=== PATIENT | male | born 1990 | race Caucasian/White ===

== ENCOUNTER 2020-03-31 22:17 | Observation (INO) | payer MEDICAID, SELFPAY ==
[2020-03-31 22:18] VITALS: BP 143/97; PULSE 104; RESP 16; TEMP 37.2; O2SAT 97; BMI 23.9
--- NOTE | 2020-03-31 22:30 | ED.VIS.GEN ---
History of Present Illness Chief Complaint: Substance Abuse Informant: Patient Onset: Days Context: Gradual Onset Timing: Intermittent Current Severity: Moderate Maximum Severity: Moderate Narrative: The patient is a 29-year-old male with medical history significant for opiate abuse and dependence that presents to the emergency department requesting detox. Patient states he is been doing outpatient Suboxone therapy, but is still continued to use. He states that he last used heroin about 3 days ago. He snorts, and denies any recent IV injection. He states he used to inject, but for the time being has just been abusing it intranasally. He states that he failed his last 2 drug tests for his Suboxone therapy. He states that he is interested in going through detox program because he is having a difficult time staying clean. He denies fevers or chills. He denies any other systemic symptoms. Prior similar symptoms: Yes Recent Illness/Hospitalization: No Past Medical History - Allergies and Home Meds Allergies/Adverse Reactions: Allergies bee venom protein (honey bee) Allergy (Verified 03/31/20 22:23) Swelling Primary Care Physician: Care Physician,No Primary [NON-STAFF] - Prior records reviewed: Yes Past Medical History: - - Anxiety, depression Surgical History: noncontributory Smoking Status: Current every day smoker Drugs: Heroin Review of Systems General: Denies: Chills, Fever, Sweats Eyes: Denies: Visual changes - bilaterally, Diplopia ENT: Denies: Rhinorrhea, Sore throat Cardiovascular: Denies: Chest pain, Palpitations Respiratory: Denies: Dyspnea, Cough, Dyspnea on exertion Gastrointestinal: Denies: Abdominal pain, Nausea, Vomiting, Diarrhea, Melena, Hematochezia Genitourinary: Denies: Dysuria, Hematuria, Frequency Musculoskeletal: Denies: Back pain, Extremity Pain Skin: Denies: Rash, Wounds Neurological: Denies: Headache, Weakness, Numbness Physical Exam Vital Signs/Narrative: Vital Signs Temp Pulse Resp BP Pulse Ox 03/31/20 22:18 99 F 104 H 16 143/97 H 97 Inital Vital Signs reviewed: Yes General: Well nourished, Well developed, No Acute Distress Head: Normocephalic, Atraumatic Eyes: Perrl, EOMI ENT: Moist mucous membranes, No rhinorrhea Neck: Supple, Nontender Cardiovascular: Regular rate, Regular rhythm, No murmurs Respiratory: No distress, CTA bilaterally, Chest nontender Abdomen: Soft, Nontender, Nondistended, Normal bowel sounds Back: Nontender, Normal Inspection Extremities: Nontender, No edema Skin: Normal color, No rash Neurological: Alert, Oriented x3, Cranial nerves II-XII grossly intact, Normal Strength, Normal Sensation Psychological: Normal affect, Normal Mood Diagnostic/Tx/Re-eval - Medical Decision Making The patient presents requesting detox from opiates. He states he is been doing a good job of being clean until the past month. He started using again. He is mildly hypertensive and tachycardic. Screening labs are obtained. The patient was discussed with the hospitalist for admission to inpatient detox. Impression 1. Opiate abuse and dependence ED Disposition - Plan for ED Patient: Referrals: Care Physician,No Primary [NON-STAFF] -
[2020-03-31 22:58] LABS: Absolute Lymphocyte Count 1.04 X10^3/uL (0.83-4.51); Absolute Neutrophil Count 5.4 X10^3/uL (2.0-7.7); Basophil# 0.02 X10^3/uL; Basophil% 0.3 % (0-1); Eosinophil# 0.03 X10^3/uL; Eosinophils% 0.4 % (0-5); Hematocrit 45.7 % (40-54); Hemoglobin 15.3 g/dL (13.0-16.5); Lymphocyte # 1.04 X10^3/ul (4.0); Mean Corp Hgb Conc 33.5 g/dL (32-36); Mean Corpuscular Hgb 29.4 pg (27.0-32.0); Mean Corpuscular Volume 87.9 fL (80-94); Mean Platelet Vol. 9.4 fl (6.2-12.0); Monocyte# 0.45 X10^3/uL; Monocyte% 6.5 % (0-10); NRBC Flagged by Analyzer 0 % (0-5); Neutrophil # 5.38 X10^3/uL (2.7-7.7); Neutrophil % 77.7 % (47-70); Platelet Count 408 K/mm3 (150-450); RBC Distribution Width CV 11.6 % (11.6-14.6); RBC Distribution Width SD 37.4 fl (35.1-43.9); White Blood Count 6.9 K/mm3 (4.4-11.0)
--- NOTE | 2020-03-31 23:10 | HP.PCM_ITS ---
Problem List (1) Opiate addiction Status: Acute (2) Methamphetamine addiction Status: Acute History of Present Illness Date of Admission: 03/31/20 Chief Complaint: requesting opiate detoxification The patient is a 29 year old male patient with a significant past medical history of opiate addiction who is been taking Suboxone for quite some time presents to the emergency room for opiate withdrawal. Patient has continued to use heroin and amphetamine on top of his Suboxone program. He has been threatened to be discharged from his IOP program and is requesting inpatient detoxification so that he may remain in the program. Denies chest pain or shortness of breath but does feel fidgety and agitated at present time. Patient is currently in 1 pack/day smoker. He denies any chest pain shortness of breath fevers or chills no nausea vomiting or diarrhea at the present time. He will be admitted to medical surgical floor and case management consulted to assist with his ongoing program for addiction management Past Medical History Allergies bee venom protein (honey bee) Allergy (Verified 03/31/20 22:23) Swelling Home Medications: Ambulatory Orders Medication Instructions Recorded Buprenorphine HCl/Naloxone HCl 1 ea BC BID 03/31/20 [Bunavail 2.1-0.3 mg Film] Hydroxyzine HCl 25 mg PO BID 03/31/20 Mirtazapine [Remeron] 15 mg PO QHS 03/31/20 Surgical History: noncontributory Smoking Status: Current every day smoker Drugs: Heroin, - - amphetamine - *Family History Maternal History Items: No pertinent history Review of Systems Constitutional: Denies: Chills, Fever, Weight Change HEENT: Denies: Head Aches, Sinus Congestion, Sinus Drainage Cardiovascular: Denies: Chest Pain, Palpitations Respiratory: Denies: Cough, Shortness of breath at rest, Sputum production Gastrointestinal: Denies: Abdominal Pain, Nausea, Vomiting Genitourinary: Denies: Dysuria Musculoskeletal: Denies: Joint Pain, Joint Tenderness Skin: Denies: Rash, Wounds Neurological: Denies: Numbness, Tingling, Focal weakness Psychiatric: Reports: Anxiety. Denies: Depression, Homicidal Ideations, Suicidal Ideations Hematologic/ Lymphatic: Denies: Easy Bruising, Easy Bleeding VTE Information - Inpt Only VTE Present on Admission: No VTE Mechan Device Prophylaxis: None VTE Pharm Prophylaxis ordered?: No Patient Problems: Active and Suspected Problems Opiate addiction (Acute) Methamphetamine addiction (Acute) - Physical Exam Vitals/I&O's: Vital Signs Temp Pulse Resp BP Pulse Ox 99 F 104 H 16 143/97 H 97 03/31/20 22:18 03/31/20 22:18 03/31/20 22:18 03/31/20 22:18 03/31/20 22:18 Weight: 176 lb 5.917 oz Body Mass Index (BMI) 23.9 General: Alert, Oriented x3, Cooperative HEENT: Atraumatic, PERRLA, EOMI, Normocephalic Neck: Supple Lungs: Clear to auscultation, Normal air movement Cardiovascular: Regular rate, Normal S1, Normal S2, No murmurs Abdomen: Bowel Sounds Present, Soft, Non Tender Extremities: No edema Skin: No rashes Musculoskeletal: No Tenderness to Palpation of Joints or Extremities Neurological: Neuro grossly intact Psych/Mental Status: Normal Affect, Appropriate Laboratory Results 03/31/20 22:50: WBC 6.9, RBC 5.20, Hgb 15.3, Hct 45.7, MCV 87.9, MCH 29.4, MCHC 33.5, RDW Std Deviation 37.4, RDW Coeff of Melody 11.6, Plt Count 408, MPV 9.4, Immature Gran % (Auto) 0.100, Neut % (Auto) 77.7 H, Lymph % (Auto) 15.0 L, [place] % (Auto) 6.5, Eos % (Auto) 0.4, Baso % (Auto) 0.3, Absolute Neuts (auto) 5.4, Absolute Lymphs (auto) 1.04, Nucleated RBC % 0 03/31/20 22:50: Sodium Pending, Potassium Pending, Chloride Pending, Carbon Dioxide Pending, Anion Gap Pending, BUN Pending, Creatinine Pending, Est GFR (MDRD) Af Amer Pending, Est GFR (MDRD) Non-Af Pending, BUN/Creatinine Ratio Pending, Glucose Pending, Calcium Pending, Total Bilirubin Pending, AST Pending, ALT Pending, Alkaline Phosphatase Pending, Total Protein Pending, Albumin Pending 03/31/20 22:50: Ethyl Alcohol Pending Assessment/Plan All Active Problems Opiate addiction (Acute) Methamphetamine addiction (Acute) Plan 1 opiate/amphetamine addiction?admit to medical surgical floor, consult case management and 180 in the morning, place patient on opiate withdrawal protocol 2. Tobacco abuse disorder?nicotine patch will be given 3. DVT prophylaxis?patient is ambulatory and will not need treatment at this time Inpatient E&M: 75093 Init Hosp L3
[2020-03-31 23:14] VITALS: BP 143/97; PULSE 104; RESP 17; TEMP 37.2; O2SAT 99
[2020-03-31 23:17] LABS: Alcohol, Blood (Medical)-Serum < 3.0 mg/dL
[2020-03-31 23:21] LABS: AST(SGOT) 32 U/L (15-37); Alanine Aminotransfer ALT/SGPT 38 U/L (16-61); Albumin, Serum 4.4 g/dL (3.2-5.0); Alkaline Phosphatase 57 U/L (45-117); Anion Gap 7 (5-15); BUN 19 mg/dL (7-18); BUN/Creat Ratio 16.2 RATIO (10-20); Calcium,Total 9.3 mg/dL (8.5-10.1); Chloride 96 mmol/L (98-107); Creatinine, Serum 1.17 mg/dL (0.70-1.30); EST Glomerular Filtration Rate 77 mL/min (>60); Est Glom Filt Rate - Afr Amer 93 mL/min (>60); Estimated Creatinine Clearance 100.41 ml/min; Globulin 4.5 g/dL (2.2-4.2); Glucose 116 mg/dL (74-106); Potassium 4.3 mmol/L (3.5-5.1); Protein, Total 8.9 g/dL (6.4-8.2); Sodium Level 136 mmol/L (136-145)
[2020-03-31 23:26] VITALS: BMI 23.8
[2020-03-31 23:48] VITALS: BP 135/94; PULSE 106; RESP 16; TEMP 36.9; O2SAT 96
[2020-03-31 23:49] VITALS: BMI 23.8
[2020-04-01] VITALS (9 sets, daily range): BP systolic 117–131; BP diastolic 67–81; PULSE 64–88; RESP 16–18; TEMP 36.6–36.8; O2SAT 93–100
[2020-04-01] MEDS: Methocarbamol 750 MG Tablet 1500 MG PO ×3 (00:07→16:49)
[2020-04-01] MEDS: Mirtazapine 15 MG Tablet PO ×2 (00:08→22:39)
[2020-04-01] MEDS: hydrOXYzine PAM 25 MG Capsule 50 MG PO ×2 (00:08→22:39)
[2020-04-01 01:21] LABS: Amphetamine Urine VISTA POSITIVE (<1000 ng/mL); Barbiturate Urine VISTA NEGATIVE (< 200 ng/mL); Benzodiazepine Urine VISTA NEGATIVE (< 200 ng/mL); Cocaine Urine VISTA NEGATIVE (< 300 ng/mL); Ecstacy Urine VISTA POSITIVE (< 500 ng/mL); Methadone Urine VISTA NEGATIVE (< 300 ng/mL); PCP Urine VISTA NEGATIVE (< 25 ng/mL); THC Urine VISTA NEGATIVE (< 50 ng/mL); Vista UDS pH Range 7
--- NOTE | 2020-04-01 08:49 | CASEMGMT ---
Addendum entered by Inge Swain 04/01/20 11:58: SW received message from Anju at [facility] asking if SW can have pt sign YOANDY for [facility] and [facility]. SW in to speak with pt. SW introduced self and role at [facility]. Pt signed YOANDY for [facility] and [facility]. PAU faxed YOANDY to Anju at [facility] and placed originals on pt's chart. Original Note: Social Work Note Pt is RAMP pt. PAU placed a call to Anju at [facility] and updated her that pt will need to be seen. Inge Swain PHOTOGRAPHIC LABORATORY TECHNICIAN, WIRELESS ENGINEER
[2020-04-01] MEDS: cloNIDine HCl 0.1 MG Tablet PO ×2 (08:59→16:49)
[2020-04-01] MEDS: Buprenorphine HCl 2 MG TAB.SUBL SL ×2 (09:46→16:49)
--- NOTE | 2020-04-01 14:29 | PCM.PN.HOSP ---
Patient Problems: Active and Suspected Problems Opiate addiction (Acute) Methamphetamine addiction (Acute) Reason for Visit: Patient admitted for opioid withdrawal syndrome Objective: Patient has anxiety, restlessness, nausea and abdominal cramps. No diarrhea yet. Denies hallucination, delusion or delusion. Feeling generalized aches and pain, hot and cold sensation. Physical exam General: Alert, Oriented x3, Cooperative HEENT: Atraumatic, PERRLA, EOMI, Normocephalic Oral: No Gingival or Mucosal Lesions/ Ulcerations Neck: Supple, No JVD, Negative Carotid Bruits Lungs: Air entry equal in bilateral lungs. No crepitation/rhonchi Cardiovascular: Regular rate, Regular Rhythm, Normal S1, Normal S2, No murmurs Abdomen: Bowel Sounds Present, Soft, Non Tender, Non-Distended : No renal angle tenderness. No suprapubic tenderness. Extremities: No edema, Capillary Refill Less than 3 Seconds Skin: No rashes, No breakdown. Needle track white on bilateral antecubital regions. Chronic thrombophlebitis. Musculoskeletal: No Tenderness to Palpation of Joints or Extremities Neurological: Cranial nerves II-XII grossly intact, Deep Tendon Reflexes 2+/4 and Symmetrical, Neuro grossly intact Psych/Mental Status: Normal Affect, Appropriate Vitals/I&O's: Vital Signs Temp Pulse Resp BP Pulse Ox 98.1 F 77 16 125/81 H 99 04/01/20 12:32 04/01/20 12:32 04/01/20 12:32 04/01/20 12:32 04/01/20 12:32 Oxygen Delivery Method Room Air Weight: 175 lb 7.807 oz Body Mass Index (BMI) 23.8 Intake and Output for Last 24 Hours 03/30/20 03/31/20 04/01/20 23:59 23:59 23:59 Intake Total 640 / 640 Balance 640 / 640 Laboratory Results 03/31/20 22:50: WBC 6.9, RBC 5.20, Hgb 15.3, Hct 45.7, MCV 87.9, MCH 29.4, MCHC 33.5, RDW Std Deviation 37.4, RDW Coeff of Melody 11.6, Plt Count 408, MPV 9.4, Immature Gran % (Auto) 0.100, Neut % (Auto) 77.7 H, Lymph % (Auto) 15.0 L, [place] % (Auto) 6.5, Eos % (Auto) 0.4, Baso % (Auto) 0.3, Absolute Neuts (auto) 5.4, Absolute Lymphs (auto) 1.04, Nucleated RBC % 0 03/31/20 22:50: Sodium 136, Potassium 4.3, Chloride 96 L, Carbon Dioxide 33.0 H, Anion Gap 7, BUN 19 H, Creatinine 1.17, Estim Creat Clear Calc 100.41, Est GFR (MDRD) Af Amer 93, Est GFR (MDRD) Non-Af 77, BUN/Creatinine Ratio 16.2, Glucose 116 H, Calcium 9.3, Total Bilirubin 0.20, AST 32, ALT 38, Alkaline Phosphatase 57, Total Protein 8.9 H, Albumin 4.4, Globulin 4.5 H, Albumin/Globulin Ratio 1.0 03/31/20 22:50: Ethyl Alcohol < 3.0 04/01/20 00:37: Urine Opiates Screen NEGATIVE, Urine Methadone Screen NEGATIVE, Ur Barbiturates Screen NEGATIVE, Ur Phencyclidine Scrn NEGATIVE, Ur Amphetamines Screen POSITIVE H, U Methamphetamin-MDMA POSITIVE H, U Benzodiazepines Scrn NEGATIVE, Urine Cocaine Screen NEGATIVE, U Cannabinoids Screen NEGATIVE, Ur Drug Screen Comment Current Medications Buprenorphine HCl (Buprenorphine Hcl) 4 mg SL Q8H NAIMA; Taper Stop: 04/04/20 09:14 Last Admin: 04/01/20 09:46 Dose: 4 mg Documented by: Clonidine (Catapres) 0.1 mg PO Q8H PRN PRN PRN Reason: RESTLESSNESS Last Admin: 04/01/20 08:59 Dose: 0.1 mg Documented by: Dicyclomine HCl (Bentyl) 20 mg PO Q6H PRN PRN PRN Reason: Abdominal Discomfort Gabapentin (Neurontin) 300 mg PO Q8H PRN PRN PRN Reason: moderate to severe anxiety Hydroxyzine Pamoate (Vistaril Pamoate Capsule) 50 mg PO Q6H PRN PRN PRN Reason: mild anxiety Last Admin: 04/01/20 00:08 Dose: 50 mg Documented by: Loperamide HCl (Imodium) 2 mg PO Q4H PRN PRN PRN Reason: LOOSE STOOLS Methocarbamol (Methocarbamol) 1,500 mg PO Q6H PRN PRN PRN Reason: MUSCLE SPASM Last Admin: 04/01/20 08:59 Dose: 1,500 mg Documented by: Mirtazapine (Remeron) 15 mg PO QHS NAIMA Last Admin: 04/01/20 00:08 Dose: 15 mg Documented by: Ondansetron HCl (Zofran) 8 mg PO Q8H PRN PRN PRN Reason: NAUSEA Trazodone HCl (Desyrel) 100 mg PO QHS PRN PRN PRN Reason: INSOMNIA STROKE Vital Signs/Narrative: Vital Signs Temp Pulse Resp BP Pulse Ox 04/01/20 12:32 98.1 F 77 16 125/81 H 99 Medical Necessity - Tobacco Use Smoking Status: Current every day smoker Tobacco Use: Cigarettes Assessment/Plan All Active Problems Opiate addiction (Acute) Methamphetamine addiction (Acute) This 29-year-old patient gentleman admitted with with opioid withdrawal symptoms. 1. Acute opioid withdrawal syndrome with chronic opioid use disorder: Patient has been taking Suboxone for quite some time. Uses IV heroin and snorts Suboxone. On buprenorphine schedule and taper along with other supportive medications including hydroxyzine, gabapentin, methocarbamol, Remeron, Imodium and ibuprofen. 2. Chronic methamphetamine dependence: 3. Chronic tobacco use, smoking cigarettes: On nicotine patch. 4. DVT prophylaxis, low risk. Patient is ambulatory. Inpatient E&M: 42195 Subs Hosp L2
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
[2020-04-01] MEDS: Ibuprofen 600 MG Tablet PO (16:49)
[2020-04-02 02:00] VITALS: BP 116/75; PULSE 81; RESP 16; TEMP 36.4; O2SAT 97
[2020-04-02] MEDS: Buprenorphine HCl 2 MG TAB.SUBL SL ×3 (02:03→16:49)
[2020-04-02 09:00] VITALS: BP 108/70; PULSE 56; RESP 18; TEMP 36.4; O2SAT 93
[2020-04-02] MEDS: hydrOXYzine PAM 25 MG Capsule 50 MG PO ×2 (09:02→22:12)
[2020-04-02] MEDS: Methocarbamol 750 MG Tablet 1500 MG PO (09:02)
[2020-04-02] MEDS: Ibuprofen 600 MG Tablet PO (09:02)
--- NOTE | 2020-04-02 12:28 | PN_ITS ---
Patient Problems: Active and Suspected Problems Opiate addiction (Acute) Methamphetamine addiction (Acute) Reason for Visit: Opioid withdrawal symptoms Objective: Patient withdrawal symptoms are controlled. Patient has mild anxiety otherwise no tremors. Physical exam General: Alert, Oriented x3, Cooperative HEENT: Atraumatic, PERRLA, EOMI, Normocephalic Oral: No Gingival or Mucosal Lesions/ Ulcerations Neck: Supple, No JVD, Negative Carotid Bruits Lungs: Air entry equal in bilateral lung bases. No crepitation/rhonchi Cardiovascular: Regular rate, Regular Rhythm, Normal S1, Normal S2, No murmurs Abdomen: Bowel Sounds Present, Soft, Non Tender, Non-Distended : No renal angle tenderness. No suprapubic tenderness. Extremities: No edema, Capillary Refill Less than 3 Seconds. Needle rica over bilateral antecubital region Skin: No rashes, No breakdown Musculoskeletal: No Tenderness to Palpation of Joints or Extremities Neurological: Cranial nerves II-XII grossly intact, Deep Tendon Reflexes 2+/4 and Symmetrical, Neuro grossly intact Psych/Mental Status: Normal Affect, Appropriate Vitals/I&O's: Vital Signs Temp Pulse Resp BP Pulse Ox 97.5 F L 56 L 18 108/70 93 04/02/20 09:00 04/02/20 09:00 04/02/20 09:00 04/02/20 09:00 04/02/20 09:00 Oxygen Delivery Method Room Air Weight: 175 lb 7.807 oz Body Mass Index (BMI) 23.8 Intake and Output for Last 24 Hours 03/31/20 04/01/20 04/02/20 23:59 23:59 23:59 Intake Total 1040 / 1640 1000 / 1000 Balance 1040 / 1640 1000 / 1000 Current Medications Acetaminophen (Tylenol) 500 mg PO Q4H PRN PRN PRN Reason: Temp > 100.4 F Al Hydroxide/Mg Hydroxide (Mylanta Ii) 30 ml PO Q6H PRN PRN PRN Reason: dyspesia Bisacodyl (Dulcolax) 10 mg RECTAL DAILY PRN PRN Reason: Constipation Buprenorphine HCl (Buprenorphine Hcl) 2 mg SL Q8H REPLACED BY [facility]; Taper Stop: 04/04/20 09:14 Last Admin: 04/02/20 08:58 Dose: 2 mg Documented by: Clonidine (Catapres) 0.1 mg PO Q8H PRN PRN PRN Reason: RESTLESSNESS Last Admin: 04/01/20 16:49 Dose: 0.1 mg Documented by: Dicyclomine HCl (Bentyl) 20 mg PO Q6H PRN PRN PRN Reason: Abdominal Discomfort Gabapentin (Neurontin) 300 mg PO Q8H PRN PRN PRN Reason: moderate to severe anxiety Hydroxyzine Pamoate (Vistaril Pamoate Capsule) 50 mg PO Q6H PRN PRN PRN Reason: mild anxiety Last Admin: 04/02/20 09:02 Dose: 50 mg Documented by: Ibuprofen (Motrin) 600 mg PO Q8H PRN PRN PRN Reason: Pain Score 1-10/10 Last Admin: 04/02/20 09:02 Dose: 600 mg Documented by: Loperamide HCl (Imodium) 2 mg PO Q4H PRN PRN PRN Reason: LOOSE STOOLS Methocarbamol (Methocarbamol) 1,500 mg PO Q6H PRN PRN PRN Reason: MUSCLE SPASM Last Admin: 04/02/20 09:02 Dose: 1,500 mg Documented by: Mirtazapine (Remeron) 15 mg PO QHS NAIMA Last Admin: 04/01/20 22:39 Dose: 15 mg Documented by: Ondansetron HCl (Zofran) 8 mg PO Q8H PRN PRN PRN Reason: NAUSEA Senna (Senokot) 2 tablet PO QHS PRN PRN Reason: Constipation STROKE Vital Signs/Narrative: Vital Signs Temp Pulse Resp BP Pulse Ox 04/02/20 09:00 97.5 F L 56 L 18 108/70 93 Medical Necessity - Tobacco Use Smoking Status: Current every day smoker Tobacco Use: Cigarettes Assessment/Plan All Active Problems Opiate addiction (Acute) Methamphetamine addiction (Acute) This 29-year-old patient gentleman admitted with with opioid withdrawal symptoms. 1. Acute opioid withdrawal syndrome with chronic opioid use disorder: Patient has been taking Suboxone for quite some time. Uses IV heroin and snorts Suboxone. On buprenorphine schedule and taper along with other supportive medications including hydroxyzine, gabapentin, methocarbamol, Remeron, Imodium and ibuprofen. 04/02: Withdrawal symptoms are well controlled. Anticipate discharge tomorrow. 2. Chronic methamphetamine dependence: 3. Chronic tobacco use, smoking cigarettes: On nicotine patch. 4. DVT prophylaxis, low risk. Patient is ambulatory. Inpatient E&M: 78264 Subs Hosp L2
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
[2020-04-02 16:55] VITALS: BP 106/74; PULSE 98; RESP 18; TEMP 36.4; O2SAT 97
[2020-04-02 22:03] VITALS: BP 129/63; PULSE 88; RESP 16; TEMP 36.6; O2SAT 95
[2020-04-02] MEDS: Mirtazapine 15 MG Tablet PO (22:08)
[2020-04-02 22:18] VITALS: PULSE 88
[2020-04-03 00:57] VITALS: BP 149/77; PULSE 76; RESP 16; TEMP 36.8; O2SAT 96
[2020-04-03] MEDS: Buprenorphine HCl 2 MG TAB.SUBL SL ×2 (01:00→10:13)
--- NOTE | 2020-04-03 10:08 | DCINST_ITS ---
- Discharge Diagnoses Current Active Problems: Current Active and Chronic Problems Opiate addiction (Acute) Methamphetamine addiction (Acute) You will use the following diet at home:: Regular Your food should be the consistency of: Regular Discharge Activity: May Not Drive Weight Bearing Status: Weight bearing as tolerated Call your doctor if you observe: Fever of 101 or Higher, Coldness, Increased Pain, Numbness or Tingling, Change in Color, Inability to urinate, Inability to have a bowel movement, Shortness of breath, Dizziness, Fainting spells, Swelling in the ankles, Chest pain, Prolonged hiccoughing, Increased palpitations (irregular heartbeat), Calf discomfort, Uncontrolled pain Allergies/Adverse Reactions: Allergies bee venom protein (honey bee) Allergy (Verified 03/31/20 22:23) Swelling Medications to take at Discharge Buprenorphine HCl/Naloxone HCl [Bunavail 2.1-0.3 mg Film] 8 mg SL BID 03/31/20 Hydroxyzine HCl 50 mg PO BID 03/31/20 Mirtazapine [Remeron] 15 mg PO QHS 03/31/20 Primary Care Physician: Care Physician,No Primary [NON-STAFF] - Please follow up with your Primary Care Physician in: in 2 week Test Results: Test results from this visit will be discussed in further detail at your follow- up appointment, if applicable. Please Follow Up With: Madeleine Benitez DO When: in 2-3 weeks for substance/opiate use disorder
--- NOTE | 2020-04-03 10:09 | PCM.DC.SUM ---
Discharge Date and Diagnosis Date of Admission: 03/31/20 Date of Discharge: 04/03/20 - Primary Discharge Diagnosis Acute Problems: Active Problems Opiate addiction (Acute) Methamphetamine addiction (Acute) Hospital Course and Treatment Summary of Care Provided: This 29-year-old patient gentleman admitted with with opioid withdrawal symptoms. 1. Acute opioid withdrawal syndrome with chronic opioid use disorder: Patient has been taking Suboxone for quite some time. Uses IV heroin and snorts Suboxone. On buprenorphine schedule and taper along with other supportive medications including hydroxyzine, gabapentin, methocarbamol, Remeron, Imodium and ibuprofen. Patient symptoms of opioid withdrawals were controlled. Follow-up with the Deaddiction specialist, Dr. Benitez. She has follow-up with outpatient substance use rehab. 2. Chronic methamphetamine dependence: 3. Chronic tobacco use, smoking cigarettes: On nicotine patch. 4. DVT prophylaxis, low risk. Patient is ambulatory. [] Discharge medication reconciliation done. Discharge follow-up instructions completed. Discharge process discussed with the patient and all questions were answered to patient's satisfaction. Total time spent, exact 35 minutes on discharge meds reconciliation, examination, coordination of care with nurses and ancillary staff, review of imaging and blood test and discussion with the patient on follow-up instructions Subjective: Patient symptoms of opioid withdrawal is controlled. Denies anxiety, restlessness or tremors. Physical exam: General: Alert, Oriented x3, Cooperative HEENT: Atraumatic, PERRLA, EOMI, Normocephalic Oral: No Gingival or Mucosal Lesions/ Ulcerations Neck: Supple, No JVD, Negative Carotid Bruits Lungs: Air entry equal in bilateral lung bases. No crepitation/rhonchi Cardiovascular: Regular rate, Regular Rhythm, Normal S1, Normal S2, No murmurs Abdomen: Bowel Sounds Present, Soft, Non Tender, Non-Distended : No renal angle tenderness. No suprapubic tenderness. Extremities: No edema, Capillary Refill Less than 3 Seconds. Needle track white on bilateral antecubital region. Skin: No rashes, No breakdown Musculoskeletal: No Tenderness to Palpation of Joints or Extremities Neurological: Cranial nerves II-XII grossly intact, Deep Tendon Reflexes 2+/4 and Symmetrical, Neuro grossly intact Psych/Mental Status: Normal Affect, Appropriate - Physical Exam Vitals/I&O's: Vital Signs Temp Pulse Resp BP Pulse Ox 98.2 F 76 16 149/77 H 96 04/03/20 00:57 04/03/20 00:57 04/03/20 00:57 04/03/20 00:57 04/03/20 00:57 Oxygen Delivery Method Room Air Weight: 175 lb 7.807 oz Body Mass Index (BMI) 23.8 Intake and Output for Last 24 Hours 04/01/20 04/02/20 04/03/20 23:59 23:59 23:59 Intake Total 1040 / 1640 1000 / 1500 800 / 800 Balance 1040 / 1640 1000 / 1500 800 / 800 Current Medications Acetaminophen (Tylenol) 500 mg PO Q4H PRN PRN PRN Reason: Temp > 100.4 F Al Hydroxide/Mg Hydroxide (Mylanta Ii) 30 ml PO Q6H PRN PRN PRN Reason: dyspesia Bisacodyl (Dulcolax) 10 mg RECTAL DAILY PRN PRN Reason: Constipation Buprenorphine HCl (Buprenorphine Hcl) 2 mg SL Q12H NAIMA; Taper Stop: 04/04/20 09:14 Last Admin: 04/03/20 01:00 Dose: 2 mg Documented by: Clonidine (Catapres) 0.1 mg PO Q8H PRN PRN PRN Reason: RESTLESSNESS Last Admin: 04/01/20 16:49 Dose: 0.1 mg Documented by: Dicyclomine HCl (Bentyl) 20 mg PO Q6H PRN PRN PRN Reason: Abdominal Discomfort Gabapentin (Neurontin) 300 mg PO Q8H PRN PRN PRN Reason: moderate to severe anxiety Hydroxyzine Pamoate (Vistaril Pamoate Capsule) 50 mg PO Q6H PRN PRN PRN Reason: mild anxiety Last Admin: 04/02/20 22:12 Dose: 50 mg Documented by: Ibuprofen (Motrin) 600 mg PO Q8H PRN PRN PRN Reason: Pain Score 1-10/10 Last Admin: 04/02/20 09:02 Dose: 600 mg Documented by: Loperamide HCl (Imodium) 2 mg PO Q4H PRN PRN PRN Reason: LOOSE STOOLS Methocarbamol (Methocarbamol) 1,500 mg PO Q6H PRN PRN PRN Reason: MUSCLE SPASM Last Admin: 04/02/20 09:02 Dose: 1,500 mg Documented by: Mirtazapine (Remeron) 15 mg PO QHS [facility] Last Admin: 04/02/20 22:08 Dose: 15 mg Documented by: Ondansetron HCl (Zofran) 8 mg PO Q8H PRN PRN PRN Reason: NAUSEA Senna (Senokot) 2 tablet PO QHS PRN PRN Reason: Constipation Discharge Activity: May Not Drive Weight Bearing Status: Weight bearing as tolerated Call your doctor if you observe: Fever of 101 or Higher, Coldness, Increased Pain, Numbness or Tingling, Change in Color, Inability to urinate, Inability to have a bowel movement, Shortness of breath, Dizziness, Fainting spells, Swelling in the ankles, Chest pain, Prolonged hiccoughing, Increased palpitations (irregular heartbeat), Calf discomfort, Uncontrolled pain Home Medications: Medications to take at Discharge Buprenorphine HCl/Naloxone HCl [Bunavail 2.1-0.3 mg Film] 8 mg SL BID 03/31/20 Hydroxyzine HCl 50 mg PO BID 03/31/20 Mirtazapine [Remeron] 15 mg PO QHS 03/31/20 Primary Care Physician: Care Physician,No Primary [NON-STAFF] - Please follow up with your Primary Care Physician in: in 2 week Please Follow Up With: Madeleine Benitez DO When: in 2-3 weeks for substance/opiate use disorder Medical Necessity - Tobacco Use Smoking Status: Current every day smoker Tobacco Use: Cigarettes Meaningful Use Info Meaningful Use Diagnoses (Choose all that apply): None applicable Inpatient E&M: 03936 Disch Hosp
[2020-04-03 10:18] VITALS: BP 105/62; PULSE 68; RESP 18; TEMP 36.8; O2SAT 98
== END 2020-04-03 10:33 | disposition home or self-care (01) ==
LOC: ED 22:40 → MS3 23:30
PROVIDERS: Admitting Provider Family Medicine; Emergency Provider Emergency Medicine; PCP Nurse Practitioner Adult Health; Visit Provider Internal Medicine
DX: F11.23 Opioid dependence with withdrawal (principal); F15.20 Other stimulant dependence, uncomplicated; F17.210 Nicotine dependence, cigarettes, uncomplicated; F32.9 Major depressive disorder, single episode, unspecified; F41.9 Anxiety disorder, unspecified
CPT/HCPCS: 80053; 80307; 80320; 85025; 99281; H0012; G0480